=== PATIENT | male | born 1975 | race African-American/Black ===

== ENCOUNTER 2021-02-12 17:04 | Emergency (ER) | payer SELFPAY ==
[~2021-02-12] VITALS: Ht 182.9 cm; Wt 130.0 kg
[2021-02-12 17:38] VITALS: BP 163/101
--- NOTE | 2021-02-12 18:49 | RAD ---
C-spine 3 views. HISTORY: Injury after wrestling 3 views were taken of the cervical spine. There is hypertrophic spurring in the cervical spine. C-spi ne is in normal alignment. There is disc space narrowing at C6-7. Odontoid is intact on the open mout h view. IMPRESSION: 1. No acute fracture noted in the cervical spine. 2. Mild degenerative changes mainly at C6-7. Electronically signed by: Mendel Esteban MD (02/12/2021 6:47 PM) [facility]
--- NOTE | 2021-02-12 19:37 | RAD ---
Exam: Left fingers 3 views INDICATION: Thumb pain after wrestling TECHNIQUE: Frontal view of the left hand with oblique and lateral views of the first digit Comparisons: None FINDINGS: Bone mineralization is normal. No acute or healed fractures. Soft tissue swelling surrounding the fir st digit. Joint spaces are well-maintained. IMPRESSION: Soft tissue swelling surrounding the first digit without underlying osseous abnormality identified. Electronically signed by: Charlie Ghosh MD (02/12/2021 7:34 PM) [facility]
[2021-02-12] MEDS ORDERED: TRAM50TA PO (20:13)
--- NOTE | 2021-02-12 20:15 | PHYS DOC ---
Past Medical History Past Surgical History: No Surgical History General Adult EDM: Chief Complaint: THUMB HPI: HPI: Patient is a 45 year old male who presents to the ED today complaining of 8 out of 10 left arm pain and right lateral neck pain, symptoms began yesterday while playing wrestling with the son. Patient describes the pain as sharp and intermittent worse on range of motion to both of the neck and left arm. Denies anything specifically alleviating the pain. Review of Systems: Review of Systems: Constitutional: Denies fever or chills. [] Musculoskeletal: Reports right lateral neck pain and left thumb pain. Denies back pain Integument: Denies rash. [] Neurologic: Denies headache, focal weakness or sensory changes. [] Psychiatric: Denies depression or anxiety. [] Heart Score: C/O Chest Pain: N/A Risk Factors: Risk Factors: DM, Current or recent (<one month) smoker, HTN, HLP, family history of CAD, obesity. Risk Scores: Score 0 - 3: 2.5% MACE over next 6 weeks - Discharge Home Score 4 - 6: 20.3% MACE over next 6 weeks - Admit for Clinical Observation Score 7 - 10: 72.7% MACE over next 6 weeks - Early Invasive Strategies Physical Exam: PE: Constitutional: Well developed, well nourished, no acute distress, non-toxic appearance. [] [] Neck: Normal range of motion, diffuse paraspinal muscle tenderness to the right lateral cervical spine, no midline cervical spine tenderness, supple, no stridor. [] Skin: Warm, dry, no erythema, no rash. [] Back: No tenderness, no CVA tenderness. [] Extremities: Left thumb with no obvious deformity. Soft tissue swelling noted along the. There is diffuse tenderness throughout the thumb. Full range of motion to the thumb. Adequate radial sensation to the left thumb. +2 left radial pulse. Cap refill less than 2 seconds to left fingers Neurologic: Alert and oriented X 3, normal motor function, normal sensory function, no focal deficits noted. [] Psychologic: Affect normal, judgement normal, mood normal. [] Current Patient Data: Vital Signs: Vital Signs Date Time Temp Pulse Resp B/P (MAP) Pulse Ox O2 Delivery O2 Flow Rate FiO2 02/12/21 17:38 98.0 86 16 163/101 (121) 96 Room Air 98.0 EKG: EKG: [] Radiology/Procedures: Radiology/Procedures: []PROCEDURE: FINGER(S) LEFT Exam: Left fingers 3 views INDICATION: Thumb pain after wrestling TECHNIQUE: Frontal view of the left hand with oblique and lateral views of the first digit Comparisons: None FINDINGS: Bone mineralization is normal. No acute or healed fractures. Soft tissue swelling surrounding the first digit. Joint spaces are well-maintained. IMPRESSION: Soft tissue swelling surrounding the first digit without underlying osseous abnormality identified. Electronically signed by: Charlie Russell MD (02/12/2021 7:34 PM) [facility] DICTATED and SIGNED BY: CHARLIE RUSSELL MD DATE: 02/12/[id number] 0 PROCEDURE: CERVICAL SPINE 2-3V C-spine 3 views. HISTORY: Injury after wrestling 3 views were taken of the cervical spine. There is hypertrophic spurring in the cervical spine. C-spine is in normal alignment. There is disc space narrowing at C6-7. Odontoid is intact on the open mouth view. IMPRESSION: 1. No acute fracture noted in the cervical spine. 2. Mild degenerative changes mainly at C6-7. Electronically signed by: Mendel Esteban MD (02/12/2021 6:47 PM) [facility] DI[facility]ATED and SIGNED BY: MENDEL ESTEBAN MD DATE: 02/12/[id number] 0 Course & Med Decision Making: Course & Med Decision Making Pertinent Labs and Imaging studies reviewed. (See chart for details) This a 45-year-old male patient presented to the ED today with left arm pain and right lateral neck pain that began yesterday while playing wrestling with his son. Cervical spine x-rays and left thumb x-rays are negative for any acute findings. Noted for DJD of the cervical spine. Ice elevation encouraged. Miki bandage applied to the left thumb/hand by the ED RN, neurovascular exam done by the RN is normal. Follow-up with Ortho in 1 week if pain persists [place] Disclaimer: Omar Disclaimer: This electronic medical record was generated, in whole or in part, using a voice recognition dictation system. Departure Departure Impression: Primary Impression: Acute cervical sprain Qualified Codes: S13.9XXA - Sprain of joints and ligaments of unspecified parts of neck, initial encounter Additional Impressions: Sprain of finger, left Qualified Codes: S63.622A - Sprain of interphalangeal joint of left thumb, initial encounter DJD (degenerative joint disease), cervical Qualified Codes: M47.892 - Other spondylosis, cervical region Disposition: HOME / SELF CARE / HOMELESS Condition: STABLE Referrals: SHANNON WYATT MD (PCP) follow up in one week ROSMERY PAUL Jr. DO Patient Instructions: Cervical Sprain, Finger Sprain, [id number] Additional Instructions: You were evaluated in the emergency room for neck and left thumb pain. Your neck x-rays are negative for any acute findings, you have arthritis in your neck. Your thumb x-ray is negative for any acute findings. Take the prescribed medications as ordered. Follow-up with your doctor or the provided orthopedic doctor in 1 week. Wear the Miki bandage provided as tolerated and needed Scripts Tramadol Hcl (TRAMADOL HCL) 50 Mg Tablet 50 MG PO Q6HRS PRN for PAIN, #10 TAB Prov: SERGEY MCKNIGHT APRN 02/12/21 SERGEY MCKNIGHT APRN Feb 12, 2021 20:15
== END 2021-02-12 20:40 | disposition home or self-care (01) ==
LOC: ER 17:04
DX: S13.9XXA Sprain of joints and ligaments of unspecified parts of neck, initial encounter (principal); S63.622A Sprain of interphalangeal joint of left thumb, initial encounter; M47.892 Other spondylosis, cervical region; X50.9XXA Other and unspecified overexertion or strenuous movements or postures, initial encounter; Y93.72 Activity, wrestling; Y92.89 Other specified places as the place of occurrence of the external cause; Y99.8 Other external cause status
CPT/HCPCS: 29125; 72040; 73140; 99284